=== PATIENT | male | born 1960 | race Two or more races ===

== ENCOUNTER → 2024-06-27 | Day surgery (SDC) | payer BC ==
[2024-06-20 13:17] LABS: INR 1.02 (0.9-1.15); Partial Thromboplastin Time 27.2 SEC (24.5-34.5); Prothrombin Time 10.8 sec (9.3-11.8)
[2024-06-20 13:26] LABS: Alanine Aminotransferase 47 U/L (7-40); Albumin 5.2 g/dL (3.2-4.8); Alkaline Phosphatase 73 U/L (46-116); Anion Gap 9 (5-15); Aspartate Aminotransferase 26 U/L (13-40); BUN/Creatinine Ratio 14.3 (10.0-20.0); Bilirubin, Total 0.8 mg/dL (0.2-1.0); Blood Urea Nitrogen 18 mg/dL (9-23); Calcium 10.6 mg/dL (8.7-10.4); Carbon Dioxide 31 mmol/L (20-31); Chloride 102 mmol/L (98-107); Glucose 98 mg/dL (74-106); Potassium 3.4 mmol/L (3.5-5.1); Sodium 142 mmol/L (136-145)
[2024-06-20 13:47] LABS: Basophils # (auto) 0.1 10 ^3/uL (0-0.2); Basophils % (auto) 0.8 % (0.0-2.0); Eosinophils # (auto) 0.2 10 ^3/uL (0-0.8); Eosinophils % (auto) 2.3 % (0.0-7.0); Hematocrit 45.6 % (41.0-53.0); Hemoglobin 16.1 g/dL (13.5-17.5); Lymphocytes # (auto) 2.5 10 ^3/uL (0.4-5.4); Mean Corpuscular Hemoglobin 31.4 pg (28.0-32.0); Mean Corpuscular Hgb Conc. 35.3 g/dL (32.0-36.0); Monocytes # (auto) 0.8 10 ^3/uL (0-1.3); Monocytes % (auto) 10.1 % (0.0-12.0); Neutrophils # (auto) 4.4 10 ^3/uL (1.6-8.6); Neutrophils % (auto) 55.8 % (37.0-80.0); Nucleated Red Blood Cells % 0.3 %; Platelet Count (auto) 287 10^3/uL (140-450); Red Blood Cells 5.13 10^6/uL (4.5-5.90); Red Cell Distribution Width 13.6 % (11.8-14.3)
[~2024-06-27] VITALS: Ht 170.2 cm; Wt 95.3 kg
[~2024-06-27] MED LIST: ATOR10TA52 PO; CALC-312 PO; CETI10TA2 PO; CHOL200031 PO; HYDR25TA4 PO; MAGN84TA4 PO; OMEG1400 PO; POTA-36 PO; SODIUM CHLORIDE LOCK 10 ML ONE; TURM500C3 OR; [UNRECOGNIZED DRUG - CODE] PO
[2024-06-27] MEDS: MIDAZOLAM HCL 5 MG/ML-1ML VIAL ONE (10:39)
[2024-06-27] MEDS: fentaNYL CITRATE 100 MCG/2 ML VL ONE (10:39)
[2024-06-27] MEDS: diphenhdrAMINE HCL 50 MG/1 ML VL ONE (10:39)
[2024-06-27 11:00] VITALS: PULSE 74; RESP 14; TEMP 98.5; O2SAT 99
--- NOTE | 2024-06-27 11:00 | DVHOP2 ---
Operative Report DATE OF OPERATION: 06/27/24 PROCEDURE: Diagnostic Colonoscopy. PREOPERATIVE INDICATION: The patient is a 64 -year-old male undergoing colonoscopy for colon cancer screening POSTOPERATIVE DIAGNOSES: 1. Mild sigmoid diverticular disease 2. Trace internal hemorrhoids otherwise normal examination up to the cecum and terminal ileum PROCEDURE PERFORMED BY: Adria Gonzalez M.D. SCOPE: Olympus videocolonoscope. ASA CLASS: 2. PREOPERATIVE MEDICATIONS: Versed 4 mg, Fentanyl 100 mcg, Benadryl 50 mg PROCEDURE IN DETAIL: After obtaining an informed consent, the patient was placed on left lateral decubitus position. He was then sedated with the above medications. A rectal examination was performed that was normal. The colonoscope was then passed through the anus into the rectosigmoid and through the descending, transverse, and ascending colon up to the cecum with visualization of the appendiceal orifice, base of the cecum and the ileocecal valve. The colonoscope was then withdrawn. The distal 5-10 cm of the terminal ileum were normal No polyps or masses were seen. There was no colitis. Patient had mild sigmoid diverticular disease On retroflexion and straight on view the patient had trace to 1+ internal hemorrhoids The patient tolerated the procedure well without difficulty. WITHDRAWAL TIME: 6 minute QUALITY OF THE PREP: [place] Bowel Prep score: 9. COMPLICATIONS : None SPECIMENS: None DISPOSITION: Stable D/C to home PLAN: 1. Repeat colonoscopy in 10 years 2. Resume GI soft diet 3. Increase fluid and fiber intake 4. Outpatient follow up with me in 4-6 weeks to review results and discuss further management ADRIA GONZALEZ MD June 27, 2024 11:00
[2024-06-27 11:35] VITALS: BP 151/87; PULSE 70; RESP 14; O2SAT 96
== END | disposition home or self-care (01) ==
LOC: GI 08:06
PROVIDERS: ATTEND Internal Medicine Gastroenterology
DX: Z12.11 Encounter for screening for malignant neoplasm of colon (principal); K57.30 Diverticulosis of large intestine without perforation or abscess without bleeding; I10 Essential (primary) hypertension; E78.00 Pure hypercholesterolemia, unspecified; E66.9 Obesity, unspecified; Z68.32 Body mass index [BMI] 32.0-32.9, adult; Z79.899 Other long term (current) drug therapy; Z98.890 Other specified postprocedural states; Z88.8 Allergy status to other drugs, medicaments and biological substances
CPT/HCPCS: 36415; 45378; 80053; 85025; 85610; 85730; J1200; J2250; J3010; 45380; 99152

== ENCOUNTER 2025-01-16 11:27 | Outpatient (CLI) | payer BC ==
[~2025-01-16 11:27] MED LIST changes: -SODIUM CHLORIDE LOCK 10 ML ONE
[2025-01-16 12:12] LABS: INR 1.04 (0.9-1.15); Prothrombin Time 11.0 sec (9.3-11.8)
[2025-01-16 12:23] LABS: Hematocrit 43.1 % (41.0-53.0); Hemoglobin 15.5 g/dL (13.5-17.5); Mean Corpuscular Hemoglobin 31.9 pg (28.0-32.0); Mean Corpuscular Volume 88.8 fL (80.0-100.0); Nucleated Red Blood Cells % 0.0 %
[2025-01-16 12:53] LABS: Alkaline Phosphatase 81 U/L (46-116); Anion Gap 12 (5-15); Calcium 9.7 mg/dL (8.7-10.4); Carbon Dioxide 31 mmol/L (20-31); Chloride 100 mmol/L (98-107); Potassium 3.5 mmol/L (3.5-5.1); Sodium 143 mmol/L (136-145)
[2025-01-16 12:55] LABS: Glucose 89 mg/dL (74-106)
[2025-01-16 12:56] LABS: Alanine Aminotransferase 65 U/L (7-40); BUN/Creatinine Ratio 11.1 (10.0-20.0); Blood Urea Nitrogen 14 mg/dL (9-23); Total Protein 7.7 g/dL (5.7-8.2)
[2025-01-16 12:57] LABS: Albumin 4.6 g/dL (3.2-4.8); Cholesterol 160 mg/dL (< 200)
[2025-01-16 12:58] LABS: Bilirubin, Total 0.8 mg/dL (0.2-1.0)
[2025-01-16 13:01] LABS: HDL Cholesterol 35 mg/dL (40-59); Triglycerides 203 mg/dL (< 150)
== END 2025-01-16 17:00 | disposition home or self-care (01) ==
LOC: LAB 11:27
PROVIDERS: ATTEND Internal Medicine Gastroenterology
DX: K76.0 Fatty (change of) liver, not elsewhere classified (principal); R94.5 Abnormal results of liver function studies; Z79.899 Other long term (current) drug therapy
CPT/HCPCS: 36415; 80053; 80061; 82728; 83036; 85025; 85610